=== PATIENT | female | born 1970 | race African-American/Black ===

== ENCOUNTER 2016-10-25 09:00 | Emergency (ER) | payer SELFPAY ==
[~2016-10-25] VITALS: Ht 170.2 cm; Wt 81.5 kg
[2016-10-25 09:02] VITALS: BP 140/82; PULSE 80; RESP 16; TEMP 97.5; O2SAT 100
[2016-10-25] MEDS ORDERED: [UNRECOGNIZED DRUG - OTHER] PO (09:36)
--- NOTE | 2016-10-25 09:36 | PD ---
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 Patient states that she started having vaginal bleeding and with pain for the past 2 weeks. Patient has history of recurrent problems. Patient has been seen by java lead engineer in [place]. Patient was put on medication in the past with good success. Patient was seen by java lead engineer 1 week prior coming to [facility]. Patient states that she started having increased pelvic cramping and vaginal bleeding for the past week. Patient states that her physician gave her medication Norcolut in the past with good success of control of pain and bleeding. Patient denies any headache. Patient denies any chest pain or shortness of breath. Patient denies nausea vomiting diarrhea. Patient denies any fever chills. PFSH Past Medical History Medical History: Denies Significant Hx Diminished Hearing: No Medical other: Yes (heavy periods) Tetanus Vaccination: Unknown Influenza Vaccination: No ?: Not Past Surgical History Other Surgery: Yes (cone biopsy) Social History Alcohol Use: No Tobacco Use: No Substance Use: No Allergies-Medications (Allergen,Severity, Reaction): Coded Allergies: Penicillin (Verified Allergy, Severe, Hives, 10/25/16) Reported Meds & Prescriptions Reported Meds & Active Scripts Active [Norcolut] 5 Mg PO TID Review of Systems General / Constitutional: No: Fever Eyes: No: Visual changes HENT: No: Headaches Cardiovascular: No: Chest Pain or Discomfort Respiratory: No: Shortness of Breath Gastrointestinal: No: Abdominal Pain Genitourinary: Positive: Pelvic Pain, Vaginal Bleeding, No: Dysuria Musculoskeletal: No: Pain Skin: No Rash Neurologic: No: Weakness Psychiatric: No: Depression Endocrine: No: Polydipsia Hematologic/Lymphatic: No: Easy Bruising Physical Exam Narrative GENERAL: Well-nourished, well-developed patient. SKIN: Focused skin assessment warm/dry. HEAD: Normocephalic. EYES: No scleral icterus. No injection or drainage. NECK: Supple, trachea midline. No JVD or lymphadenopathy. CARDIOVASCULAR: Regular rate and rhythm without murmurs, gallops, or rubs. RESPIRATORY: Breath sounds equal bilaterally. No accessory muscle use. GASTROINTESTINAL: Abdomen soft, non-tender, nondistended. MUSCULOSKELETAL: No cyanosis, or edema. BACK: Nontender without obvious deformity. No CVA tenderness. COLORING ROOM WORKER exam: Deferred. Patient had COLORING ROOM WORKER exam 1 week ago by java lead engineer.. Data Data Last Documented VS Vital Signs Date Time Temp Pulse Resp B/P Pulse Ox O2 Delivery O2 Flow Rate FiO2 10/25/16 09:02 97.5 80 16 140/82 100 Room Air MDM Medical Decision Making Medical Screen Exam Complete: Yes Emergency Medical Condition: Yes Differential Diagnosis Differential diagnosis including dysmenorrhea, menorrhagia, threatened AB, incomplete AB, completed AB, ectopic . Narrative Course 45-year-old female with pelvic pain and vaginal bleeding. Patient has history of recurrent pelvic pain and prolonged vaginal bleeding. Patient was seen by java lead engineer prior coming to the area. Patient uses medication in the past with success. We will give her a prescription for the medication and follow up with her physician at home. Diagnosis Primary Impression: Dysmenorrhea Patient Instructions: General Instructions Additional Instructions: Take medication as directed. Follow up with personal physician. Return if worse. Med/Other Pt SpecificInfo: Prescription(s) given Scripts [Norcolut] No Conflict Check5 Mg PO TID #30 Prov:Mark Nelson MD 10/25/16 Disposition: 01 DISCHARGE HOME Condition: Stable Mark Nelson MD Oct 25, 2016 09:36
== END 2016-10-25 09:54 | disposition home or self-care (01) ==
LOC: NEPD 09:00
DX: N94.6 Dysmenorrhea, unspecified (principal)
CPT/HCPCS: 99283

== ENCOUNTER 2017-04-27 09:32 | Emergency (ER) | payer SELFPAY ==
[~2017-04-27] VITALS: Ht 170.2 cm; Wt 82.0 kg
[~2017-04-27 09:32] MED LIST: [UNRECOGNIZED DRUG - OTHER] PO
[2017-04-27 09:34] VITALS: BP 135/88; PULSE 101; RESP 16; TEMP 98.4; O2SAT 98
[2017-04-27] MEDS ORDERED: SODIUM CHLOR 0.9% 1000 ML INJ 1,000 ML IV SCH (09:49)
[2017-04-27] MEDS ORDERED: SODIUM CHLORIDE 0.9% FLUSH 10 ML FLUSH IV FLUSH PRN (10:00)
--- NOTE | 2017-04-27 10:01 | PD ---
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 Patient reports that she lives in [place], reports that she has been in [place] for the past few weeks. Patient reports that over the past 2 weeks, she has had irregular vaginal bleeding. Patient reports that sometimes she has spotting, reports that sometimes she has diffuse bleeding. She has noted that "I feel weak and tired." Reports that the last time she had irregular vaginal bleeding, she was visiting [facility] from [place]. Reports that she may be going through menopause, but isn't sure why she has this abnormal bleeding. Reports mild cramping to the lower abdomen. Patient with no vaginal discharge at this time. Patient with no fever or chills, patient with no other complaints. Patient with no nausea or vomiting, no constipation or diarrhea. [facility] Past Medical History Narrative Medical Patient with history of irregular vaginal bleeding, she is seen and being followed by her it program engagement director in [place] Diminished Hearing: No ?: Not LMP: 04/15/17 Past Surgical History Other Surgery: Yes (cone biopsy) Social History Alcohol Use: No Tobacco Use: No Substance Use: No Allergies-Medications (Allergen,Severity, Reaction): Coded Allergies: penicillin G (Unverified Allergy, Severe, Hives, 04/27/17) Reported Meds & Prescriptions Reported Meds & Active Scripts Active [Norcolut] 5 Mg PO TID Review of Systems General / Constitutional: No: Fever Eyes: No: Visual changes HENT: Positive: Lightheadedness, No: Headaches Cardiovascular: No: Chest Pain or Discomfort Respiratory: No: Shortness of Breath Gastrointestinal: No: Abdominal Pain Genitourinary: Positive: Vaginal Bleeding, No: Urgency, Frequency, Dysuria, Discharge Musculoskeletal: No: Pain Skin: No Rash Neurologic: Positive: Weakness, No: Dizziness, Syncope, Headache, Paresthesia, Incontinence, Seizures Psychiatric: No: Depression Endocrine: No: Polydipsia Hematologic/Lymphatic: No: Easy Bruising Physical Exam Narrative GENERAL: Mild distress SKIN: Focused skin assessment warm/dry. HEAD: Atraumatic. Normocephalic. EYES: Pupils equal and round. No scleral icterus. No injection or drainage. ENT: No nasal bleeding or discharge. Mucous membranes pink and moist. NECK: Trachea midline. No JVD. CARDIOVASCULAR: Regular rate and rhythm. No murmur appreciated. RESPIRATORY: No accessory muscle use. Clear to auscultation. Breath sounds equal bilaterally. GASTROINTESTINAL: Abdomen soft, non-tender, nondistended. Hepatic and splenic margins not palpable. MUSCULOSKELETAL: No obvious deformities. No clubbing. No cyanosis. No edema. NEUROLOGICAL: Awake and alert. No obvious cranial nerve deficits. Motor grossly within normal limits. Normal speech. PSYCHIATRIC: Appropriate mood and affect; insight and judgment normal. Data Data Last Documented VS Vital Signs Date Time Temp Pulse Resp B/P (MAP) Pulse Ox O2 Delivery O2 Flow Rate FiO2 04/27/17 10:03 99 Room Air 04/27/17 09:34 98.4 101 16 Orders Orders Beta Hcg (Quant/Titer) (04/27/17 09:49) Complete Blood Count With Diff (04/27/17 09:49) Comprehensive Metabolic Panel (04/27/17 09:49) Prothrombin Time / Inr (Pt) (04/27/17 09:49) Act Partial Throm Time (Ptt) (04/27/17 09:49) Urinalysis - C+S If Indicated (04/27/17 09:49) Iv Access Insert/Monitor (04/27/17 09:49) Ecg Monitoring (04/27/17 09:49) Oximetry (04/27/17 09:49) Sodium Chlor 0.9% 1000 Ml Inj (Ns 1000 M (04/27/17 09:49) Sodium Chloride 0.9% Flush (Ns Flush) (04/27/17 10:00) Ed Urine Pregnancytest Poc (04/27/17 09:49) Us Pelvis Comp Federal Appellate Clerk/Non-Preg (04/27/17 ) Urine Culture (04/27/17 09:55) Ceftriaxone Inj (Rocephin Inj) (04/27/17 11:15) Labs Laboratory Tests Test 04/27/17 09:55 04/27/17 10:10 Urine Color LIGHT-RED Urine Turbidity CLEAR Urine pH 5.0 Urine Specific [place] 1.018 Urine Protein TRACE mg/dL Urine Glucose (UA) NEG mg/dL Urine Ketones NEG mg/dL Urine Occult Blood LARGE Urine Nitrite NEG Urine Bilirubin NEG Urine Urobilinogen LESS THAN 2.0 MG/DL Urine Leukocyte Esterase SMALL Urine RBC /hpf Urine WBC 47 /hpf Urine Squamous Epithelial Cells 2 /hpf Urine Mucus FEW /lpf Microscopic Urinalysis Comment CULTURE INDICATED White Blood Count 9.3 TH/MM3 Red Blood Count 4.57 MIL/MM3 Hemoglobin 11.2 GM/DL Hematocrit 33.4 % Mean Corpuscular Volume 73.1 FL Mean Corpuscular Hemoglobin 24.5 PG Mean Corpuscular Hemoglobin Concent 33.6 % Red Cell Distribution Width 17.3 % Platelet Count 312 TH/MM3 Mean Platelet Volume 7.6 FL Neutrophils (%) (Auto) 81.5 % Lymphocytes (%) (Auto) 13.5 % Monocytes (%) (Auto) 3.9 % Eosinophils (%) (Auto) 0.7 % Basophils (%) (Auto) 0.4 % Neutrophils # (Auto) 7.6 TH/MM3 Lymphocytes # (Auto) 1.3 TH/MM3 Monocytes # (Auto) 0.4 TH/MM3 Eosinophils # (Auto) 0.1 TH/MM3 Basophils # (Auto) 0.0 TH/MM3 CBC Comment DIFF FINAL Differential Comment Prothrombin Time 11.0 SEC Prothromb Time International Ratio 1.1 RATIO Activated Partial Thromboplast Time 26.6 SEC Blood Urea Nitrogen 7 MG/DL Creatinine 0.74 MG/DL Random Glucose 100 MG/DL Total Protein 7.9 GM/DL Albumin 3.6 GM/DL Calcium Level 9.1 MG/DL Alkaline Phosphatase 95 U/L Aspartate Amino Transf (AST/SGOT) 12 U/L Alanine Aminotransferase (ALT/SGPT) 14 U/L Total Bilirubin 0.3 MG/DL Sodium Level 139 MEQ/L Potassium Level 4.6 MEQ/L Chloride Level 106 MEQ/L Carbon Dioxide Level 29.4 MEQ/L Anion Gap 4 MEQ/L Estimat Glomerular Filtration Rate 102 ML/MIN Human Chorionic Gonadotropin, Quant LESS THAN 1 MIU/ML MDM Medical Decision Making Medical Screen Exam Complete: Yes Emergency Medical Condition: Yes Medical Record Reviewed: Yes Interpretation(s) Vital Signs Date Time Temp Pulse Resp B/P (MAP) Pulse Ox O2 Delivery O2 Flow Rate FiO2 04/27/17 10:03 99 Room Air 04/27/17 09:34 98.4 101 16 135/88 (104) 98 Differential Diagnosis Dysmenorrhea, uterine fibroids, anemia Narrative Course During the course of the patients emergency department visit, the patients history, examination, and differential diagnosis were reviewed with the patient. The patient was placed on a front desk monitor with oximetry and frequent blood pressure monitoring. The patient had an IV access obtained and blood work sent for analysis. The patient was initially provided IV fluids. The patients laboratory studies were reviewed and remarkable for: Laboratory Tests Test 04/27/17 09:55 04/27/17 10:10 Urine Color LIGHT-RED (YELLW/STRAW) Urine Turbidity CLEAR (CLEAR) Urine pH 5.0 (5.0-8.5) Urine Specific [place] 1.018 (1.002-1.035) Urine Protein TRACE mg/dL (NEG-TRACE) Urine Glucose (UA) NEG mg/dL (NEG) Urine Ketones NEG mg/dL (NEG) Urine Occult Blood LARGE (NEG) Urine Nitrite NEG (NEG) Urine Bilirubin NEG (NEG) Urine Urobilinogen LESS THAN 2.0 MG/DL (LESS Urine Leukocyte Esterase SMALL (NEG) Urine RBC /hpf (0-3) Urine WBC 47 /hpf (0-5) Urine Squamous Epithelial Cells 2 /hpf (0-5) Urine Mucus FEW /lpf (OCC) Microscopic Urinalysis Comment CULTURE INDICATED White Blood Count 9.3 TH/MM3 (4.0-11.0) Red Blood Count 4.57 MIL/MM3 (4.00-5.30) Hemoglobin 11.2 GM/DL (11.6-15.3) Hematocrit 33.4 % (35.0-46.0) Mean Corpuscular Volume 73.1 FL (80.0-100.0) Mean Corpuscular Hemoglobin 24.5 PG (27.0-34.0) Mean Corpuscular Hemoglobin Concent 33.6 % (32.0-36.0) Red Cell Distribution Width 17.3 % (11.6-17.2) Platelet Count 312 TH/MM3 (150-450) Mean Platelet Volume 7.6 FL (7.0-11.0) Neutrophils (%) (Auto) 81.5 % (16.0-70.0) Lymphocytes (%) (Auto) 13.5 % (9.0-44.0) Monocytes (%) (Auto) 3.9 % (0.0-8.0) Eosinophils (%) (Auto) 0.7 % (0.0-4.0) Basophils (%) (Auto) 0.4 % (0.0-2.0) Neutrophils # (Auto) 7.6 TH/MM3 (1.8-7.7) Lymphocytes # (Auto) 1.3 TH/MM3 (1.0-4.8) Monocytes # (Auto) 0.4 TH/MM3 (0-0.9) Eosinophils # (Auto) 0.1 TH/MM3 (0-0.4) Basophils # (Auto) 0.0 TH/MM3 (0-0.2) CBC Comment DIFF FINAL Differential Comment Prothrombin Time 11.0 SEC (9.8-11.6) Prothromb Time International Ratio 1.1 RATIO Activated Partial Thromboplast Time 26.6 SEC (24.3-30.1) Blood Urea Nitrogen 7 MG/DL (7-18) Creatinine 0.74 MG/DL (0.50-1.00) Random Glucose 100 MG/DL (74-106) Total Protein 7.9 GM/DL (6.4-8.2) Albumin 3.6 GM/DL (3.4-5.0) Calcium Level 9.1 MG/DL (8.5-10.1) Alkaline Phosphatase 95 U/L (45-117) Aspartate Amino Transf (AST/SGOT) 12 U/L (15-37) Alanine Aminotransferase (ALT/SGPT) 14 U/L (10-53) Total Bilirubin 0.3 MG/DL (0.2-1.0) Sodium Level 139 MEQ/L (136-145) Potassium Level 4.6 MEQ/L (3.5-5.1) Chloride Level 106 MEQ/L (98-107) Carbon Dioxide Level 29.4 MEQ/L (21.0-32.0) Anion Gap 4 MEQ/L (5-15) Estimat Glomerular Filtration Rate 102 ML/MIN (>89) Human Chorionic Gonadotropin, Quant LESS THAN 1 MIU/ML (0-5) Radiology studies were reviewed and remarkable for: Last Impressions Pelvis Ultrasound 04/27/17 0000 Signed Impressions: Service Date/Time: Thursday, April 27, 2017 10:11 - CONCLUSION: 1. Homogeneous slightly prominent endometrium measuring 12 mm. This is likely due to phase of menstrual cycle. Repeat examination may be performed during early proliferative phase if there is continued clinical concern. 2. Small right ovarian cyst. Yossi Santamaria MD HGB 11.2, us: Last Impressions Pelvis Ultrasound 04/27/17 0000 Signed Impressions: Service Date/Time: Thursday, April 27, 2017 10:11 - CONCLUSION: 1. Homogeneous slightly prominent endometrium measuring 12 mm. This is likely due to phase of menstrual cycle. Repeat examination may be performed during early proliferative phase if there is continued clinical concern. 2. Small right ovarian cyst. Yossi Santamaria MD I reviewed all labs and all studies with patient in detail. She was given dose of IV Rocephin for treatment of UTI. Vital signs are stable. Patient understands need to follow-up with her AIRPORT OPERATIONS SPECIALIST for further workup of irregular vaginal bleeding. Signs and symptoms of when to return to the emergency room was reviewed patient in detail. INCIDENTAL findings were reviewed with patient in detail. Diagnosis Primary Impression: Vaginal bleeding Additional Impressions: UTI (urinary tract infection) Qualified Codes: N30.01 - Acute cystitis with hematuria Anemia Qualified Codes: D64.9 - Anemia, unspecified Ovarian cyst Qualified Codes: N83.201 - Unspecified ovarian cyst, right side Patient Instructions: General Instructions Additional Instructions: Please provide patient with a copy of their lab work and studies at discharge* * Please follow up with your primary care doctor in 2-3 days Return to the ER if symptoms worsen or progress Return to the ER as needed Please follow-up with your it program engagement director for further workup of your irregular vaginal bleeding Med/Other Pt SpecificInfo: Prescription(s) given Scripts Nitrofurantoin Monohydrate Macrocrystals (Macrobid) 100 Mg Cap 100 MG PO BID for Infection for 10 Days, #20 CAP 0 Refills Prov: Haleigh Maddox DO 04/27/17 Disposition: 01 DISCHARGE HOME Condition: Stable Haleigh Maddox DO Apr 27, 2017 10:01
[2017-04-27 10:03] VITALS: O2SAT 99
[2017-04-27 10:23] LABS: AUTOMATED NEUTROPHIL # 7.6 TH/MM3 (1.8-7.7); BASOPHIL % 0.4 % (0.0-2.0); EOSINOPHIL # 0.1 TH/MM3 (0-0.4); EOSINOPHIL % 0.7 % (0.0-4.0); HEMATOCRIT 33.4 % (35.0-46.0); HEMOGLOBIN 11.2 GM/DL (11.6-15.3); LYMPH % 13.5 % (9.0-44.0); LYMPHOCYTE # 1.3 TH/MM3 (1.0-4.8); MEAN CELL VOLUME 73.1 FL (80.0-100.0); MEAN CORPUSCULAR HEMOGLOBIN 24.5 PG (27.0-34.0); MEAN CORPUSCULAR HGB CONC 33.6 % (32.0-36.0); MEAN PLATELET VOLUME 7.6 FL (7.0-11.0); MONO % 3.9 % (0.0-8.0); MONOCYTE # 0.4 TH/MM3 (0-0.9); NEUT % 81.5 % (16.0-70.0); PLATELET COUNT 312 TH/MM3 (150-450); RED BLOOD COUNT 4.57 MIL/MM3 (4.00-5.30); RED CELL DISTRIBUTION WIDTH 17.3 % (11.6-17.2); WHITE BLOOD COUNT 9.3 TH/MM3 (4.0-11.0)
[2017-04-27 10:34] LABS: INTERNATIONAL NORMALIZED RATIO 1.1 RATIO
[2017-04-27 10:40] LABS: BILIRUBIN, URINE NEG (NEG); BLOOD, URINE LARGE (NEG); GLUCOSE,URINE NEG (NEG); KETONE, URINE NEG (NEG); MUCUS URINE FEW /lpf (OCC); NITRITE,URINE NEG (NEG); SQUAMOUS EPITHELIAL CELL URINE 2 /hpf (0-5); URINE LEUKOCYTE ESTERASE SMALL (NEG)
[2017-04-27 10:41] LABS: URINE COLOR LIGHT-RED (YELLW/STRAW)
[2017-04-27 10:52] LABS: ALBUMIN 3.6 GM/DL (3.4-5.0); AST (GOT) 12 U/L (15-37); BICARBONATE 29.4 MEQ/L (21.0-32.0); BLOOD UREA NITROGEN 7 MG/DL (7-18); CALCIUM 9.1 MG/DL (8.5-10.1); CHLORIDE 106 MEQ/L (98-107); CREATININE 0.74 MG/DL (0.50-1.00); GLOMERULAR FILTRATION RATE 102 ML/MIN (>89); GLUCOSE,RANDOM 100 MG/DL (74-106); SODIUM (NA) 139 MEQ/L (136-145)
--- NOTE | 2017-04-27 10:52 | RADRPT ---
EXAM DATE/TIME: 04/27/2017 10:11 [facility] COMPARISON: No previous studies available for comparison. INDICATIONS : Spotting for 2 weeks. MEDICAL HISTORY : Irregular vaginal bleeding. SURGICAL HISTORY : Cone biopsy. ENCOUNTER: Initial ACUITY: 2 weeks PAIN SCORE: 0/10 LOCATION: Bilateral pelvis MEASUREMENTS: UTERUS: 11.6 x 6.9 x 6.2 cm ENDOMETRIAL STRIPE: 12 mm RIGHT OVARY: 3.3 x 2.5 x 1.5 cm LEFT OVARY: 2.7 x 2.5 x 1.9 cm FINDINGS: UTERUS: The myometrium has homogeneous echotexture without mass. A Noah stripe is homogeneous but slightly prominent at 12 mm. RIGHT OVARY: Small anechoic cyst measuring 1.2 x 1.4 x 1.5 cm and the right ovary. Ovary contains no mass le rosendo. LEFT OVARY: Ovary contains no mass or significant cystic lesion. MISCELLANEOUS: No free fluid. CONCLUSION: 1. Homogeneous slightly prominent endometrium measuring 12 mm. This is likely due to phase of menstru al cycle. Repeat examination may be performed during early proliferative phase if there is continued clinical concern. 2. Small right ovarian cyst. Yossi Santamaria MD on April 27, 2017 at 10:43 Board Certified Radiologist. This report was verified electronically.
[2017-04-27 10:57] LABS: ALKALINE PHOSPHATASE 95 U/L (45-117); ALT (GPT) 14 U/L (10-53); TOTAL BILIRUBIN ADULT 0.3 MG/DL (0.2-1.0); TOTAL PROTEIN 7.9 GM/DL (6.4-8.2)
[2017-04-27] MEDS ORDERED: cefTRIAXone INJ 1,000 MG in SODIUM CHLORIDE 0.9% INJ 100 ML IV ONE (11:15)
[2017-04-27] MEDS ORDERED: MACR100C2 PO (12:35)
== END 2017-04-27 13:06 | disposition home or self-care (01) ==
LOC: NEPD 09:32
DX: N93.8 Other specified abnormal uterine and vaginal bleeding (principal); N39.0 Urinary tract infection, site not specified; B96.89 Other specified bacterial agents as the cause of diseases classified elsewhere; D64.9 Anemia, unspecified; N83.201 Unspecified ovarian cyst, right side; R42 Dizziness and giddiness; Z88.0 Allergy status to penicillin; Z79.899 Other long term (current) drug therapy
CPT/HCPCS: 76856; 80053; 81001; 84702; 84703; 85025; 85610; 85730; 87086; 96361; 96365; 99285; J0696; J7030